=== PATIENT | female | born 1995 | race Caucasian/White ===

== ENCOUNTER 2016-12-18 12:51 | Inpatient (IN) | payer MEDICAID ==
--- NOTE | 2016-12-18 14:17 | History and Physical Report ---
History of Present Illness Date of examination: 12/18/16 Date of admission: 12/18/16 12:51 Chief complaint: Advanced Cervical Dilatation History of present illness: Early entry to care, course complicated by URI s/s. 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 Family/Genetic History: diabetes Social history: no significant social history, - Obstetrical History Expected Date of Delivery: 12/17/16 Actual Gestation: 40 Week(s) 1 Day(s) : 2 Para: 1 Number of Living Children: 1 #1 Infant Gender: Male year: 2[age][birth year] Birthweight: 2.977 kg Method of Delivery: Vaginal Gestational age at delivery: 38 Complications: none Medications and Allergies Allergies Allergy/AdvReac Type Severity Reaction Status Date / Time No Known Allergies Allergy Verified 01/09/15 00:38 Home Medications Medication Instructions Recorded Confirmed Last Taken Type Vitamin 1 cap PO DAILY 01/09/15 01/09/15 01/08/15 History Review of Systems All systems: negative - Vital Signs Vital signs: Vital Signs Pulse BP 86 106/67 12/18/16 13:08 12/18/16 13:08 Temp Pulse Resp BP Pulse Ox 97.7 F 80 16 106/67 95 12/18/16 13:27 12/18/16 14:01 12/18/16 13:27 12/18/16 13:27 12/18/16 14:01 - Physical Exam Breasts: Positive: normal Cardiovascular: Regular rate Lungs: Positive: Clear to auscultation, Normal air movement Abdomen: Positive: normal appearance, soft, normal bowel sounds Genitourinary (Female): Positive: normal external genitalia, normal perenium Vagina: Positive: normal moisture Uterus: Positive: enlarged Anus/Rectum: Positive: normal perianal skin - Obstetrical FHR: category 1 Uterine Contraction Monitor Mode: External Cervical Dilatation: 5 (Intact, Vtx) Cervical Effacement Percentage: 70 station: -2 Uterine Contraction Pattern: Regular Uterine Tone Measurement Phase: Resting Uterine Contraction Intensity: Moderate Results All other labs normal. Assessment and Plan A: IUP @ 40 1/7 Weeks Category I Tracing Early Labor GBS Negative P: Admit to L&D per routine orders Pitocin Augmentation
[2016-12-18] MEDS ORDERED: STADOL IV PRN (14:30)
[2016-12-18] MEDS ORDERED: ePHEDrine SULFATE IV PRN (14:30)
--- NOTE | 2016-12-18 14:41 | Progress Note ---
Assessment and Plan A: IUP @ 40 1/7 Weeks Category I Tracing Early Labor GBS Negative P: AROM Pitocin Augmentation Subjective - Subjective Date of service: 12/18/16 Interval history: Early entry to care, course complicated by URI s/s. Patient reports: movement normal Objective - Vital Signs Vital Signs: Vital Signs - 12hr 12/18/16 12/18/16 12/18/16 13:08 13:26 13:27 Temperature 97.7 F Pulse Rate 86 92 H 85 Respiratory 16 Rate Blood Pressure 106/67 106/67 O2 Sat by Pulse 97 96 Oximetry 12/18/16 12/18/16 12/18/16 13:31 13:36 13:41 Temperature Pulse Rate 82 81 82 Respiratory Rate Blood Pressure O2 Sat by Pulse 96 96 96 Oximetry 12/18/16 12/18/16 12/18/16 13:46 13:51 13:56 Temperature Pulse Rate 80 78 83 Respiratory Rate Blood Pressure O2 Sat by Pulse 95 96 96 Oximetry 12/18/16 14:01 Temperature Pulse Rate 80 Respiratory Rate Blood Pressure O2 Sat by Pulse 95 Oximetry - Exam Breasts: normal Cardiovascular: Regular rate Lungs: Clear to auscultation Abdomen: Present: normal appearance, soft Uterus: Present: normal, firm, fundal height above umbilicus FHR: category 1 Uterine Contraction Monitor Mode: External Cervical Dilatation: 5 (Moderate amount of clear fluid upon AROM @ 1435) Cervical Effacement Percentage: 70 station: -2 Uterine Contraction Pattern: Irregular Uterine Tone Measurement Phase: Resting Uterine Contraction Intensity: Mild Extremities: normal
[2016-12-18] MEDS ORDERED: BRETHINE IVP PRN (15:00)
[2016-12-18] MEDS ORDERED: ZOFRAN IV PRN ×2 (15:00→19:37)
[2016-12-18] MEDS ORDERED: XYLOCAINE 2% INFILTRATI ONE ×2 (15:00→19:03)
[2016-12-18] MEDS ORDERED: NARCAN 0.4 MG/1 ML IV PRN (15:00)
[2016-12-18] MEDS ORDERED: PITOCin/NS 30 UNIT/500ML 30 UNITS/500 ML BAG IV SCH ×2 (15:00)
[2016-12-18] MEDS ORDERED: PITOCin/NS 20 UNIT/1000ML DRIP 20 UNITS/1,000 ML BAG IV SCH (15:00)
[2016-12-18] MEDS ORDERED: BRETHINE SUB-Q PRN (15:00)
[2016-12-18] MEDS ORDERED: MINERAL OIL PO PRN (15:00)
[2016-12-18] MEDS ORDERED: LACTATED RINGERS 1,000 ML IV SCH (15:00)
[2016-12-18 15:36] LABS: Hematocrit 38.2 % (30.3-42.9); Hemoglobin 12.8 gm/dl (10.1-14.3); Mean Corpuscular HGB Conc 34 % (30-34); Mean Corpuscular Hemoglobin 29 pg (28-32); Mean Corpuscular Volume 86 fl (79-97); Platelet Count 335 K/mm3 (140-440); Red Blood Count 4.44 M/mm3 (3.65-5.03); Red Cell Distribution Width 14.2 % (13.2-15.2); White Blood Count 10.6 K/mm3 (4.5-11.0)
[2016-12-18] MEDS ORDERED: BENADRYL PO PRN (19:37)
[2016-12-18] MEDS ORDERED: MILK OF MAGNESIA PO PRN (19:37)
[2016-12-18] MEDS ORDERED: NORCO 5/325 PO PRN (19:37)
[2016-12-18] MEDS ORDERED: DULCOLAX PR PRN (19:37)
[2016-12-18] MEDS ORDERED: LANSINOH TP PRN (19:37)
[2016-12-18] MEDS ORDERED: PHENERGAN PR PRN (19:37)
[2016-12-18] MEDS ORDERED: TUCKS PAD TP PRN (19:37)
--- NOTE | 2016-12-18 19:47 | Procedure Note ---
OB Delivery Note - Delivery Date of Delivery: 12/18/16 (1900) Surgeon: NATASHA BARRAGAN Estimated blood loss: 200cc - Vaginal Delivery presentation: vertex Delivery position: OA Delivery induction: none Delivery augmentation: rupture of membranes, pitocin Delivery monitor: external FHT, external uterine Route of delivery: Delivery placenta: manual Delivery cord: nuchal cord, 3 umbilical vessels Episiotomy: none Delivery laceration: 1st degree Delivery repair: vicryl Anesthesia: local Delivery comments: of a live 7'11 male over a first degree perineal laceration without pain control with Apgars of 8 and 9 at 1900 on 12/18/2016. Tight nuchal cord x 1 manually reduced with delivery of infant. Infant directly to maternal abd/ chest, skin to skin contact. Delayed cord clamping and cutting. Manual placental extraction with one attempt at 1919. Placenta appears to be complete and intact. Upon uterine exploration, uterus palpates empty. Fundus is firm and midline located 4 below the U. Lochia is scant. First degree perineal laceration repaired with 2-[address]-1 under local 2% Lidocaine. Cord blood collected. - Infant A at 1 minute: 8 at 5 minutes: 9 Infant Gender: Male (7'11)
[2016-12-18] MEDS ORDERED: SODIUM CHLORIDE FLUSH SYRINGE 10 ML IV NR (20:00)
[2016-12-19] MEDS: MOTRIN PO SCH ×4 (02:15→23:25)
[2016-12-19 07:25] LABS: Hematocrit 35.1 % (30.3-42.9); Hemoglobin 11.5 gm/dl (10.1-14.3)
--- NOTE | 2016-12-19 10:34 | Progress Note ---
Assessment and Plan A: PP Day #1 Stable P: Follow Routine Orders Depo Provera prior to discharge D/C home in the AM RTO in 6 Weeks Subjective - Subjective Date of service: 12/19/16 Interval history: Early entry to care, course complicated by URI s/s. Patient reports: appetite normal, voiding normally, pain well controlled, flatus , ambulating normally [place]: doing well, bottle feeding Objective - Vital Signs Latest vital signs: Vital Signs Temp Pulse Resp BP Pulse Ox 12/19/16 08:20 98.3 F 73 17 102/62 12/19/16 04:40 98.6 F 67 67 H 106/53 12/19/16 02:15 16 12/19/16 01:10 98.6 F 65 16 103/54 12/18/16 21:30 98.3 F 83 20 99/60 12/18/16 21:00 97.6 F 87 18 102/70 12/18/16 20:34 87 102/70 12/18/16 20:23 81 101/62 12/18/16 20:10 86 114/58 12/18/16 19:53 83 88/53 12/18/16 19:45 97.4 F L 83 16 88/53 12/18/16 19:38 90 116/58 12/18/16 19:30 97.4 F L 90 18 116/58 12/18/16 19:23 106 H 127/58 12/18/16 19:08 103 H 113/56 12/18/16 16:29 97.0 F L 71 20 110/64 12/18/16 16:28 71 110/64 12/18/16 14:01 80 95 12/18/16 13:56 83 96 12/18/16 13:51 78 96 12/18/16 13:46 80 95 12/18/16 13:41 82 96 12/18/16 13:36 81 96 12/18/16 13:31 82 96 12/18/16 13:27 97.7 F 85 16 106/67 96 12/18/16 13:26 92 H 97 12/18/16 13:08 86 106/67 Intake and Output 12/18/16 12/19/16 12/19/16 22:59 06:59 14:59 Intake Total 600 120 Output Total 1400 Balance -800 120 Intake: Oral 120 Intake, Free Water 600 Output: Urine 1400 Void 1400 Other: Total, Intake Amount 120 Total, Output Amount 400 # Voids Void 1 Estimated Blood Loss 200 - Exam Breasts: Present: normal Cardiovascular: Present: Regular rate Lungs: Present: Clear to auscultation, Normal air movement Abdomen: Present: normal appearance, soft, normal bowel sounds Uterus: Present: normal, firm, fundal height below umbilicus Extremities: Present: normal
--- NOTE | 2016-12-19 10:36 | Discharge Summary ---
Providers - Providers Date of Admission: 12/18/16 12:51 Date of discharge: 12/20/16 Attending physician: DORA SOLIS MD Primary care physician: DORA SOLIS MD Hospitalization Reason for admission: active labor Delivery: Episiotomy: none Laceration: 1st degree Other procedures: none complications: none Discharge diagnosis: IUP at term delivered baby: male Condition at discharge: Good Disposition: DC-01 TO HOME OR SELFCARE Plan - Provider Discharge Summary Activity: routine, no sex for 6 weeks, no heavy lifting 4 weeks, no strenuous exercise Diet: routine Instructions: routine Additional instructions: [] Smoking cessation referral if applicable(refer to patient education folder for contact #) [] Refer to [facility]'s [facility] Booklet Call your doctor immediately for: * Fever > 100.5 * Heavy vaginal bleeding ( >1 pad per hour) * Severe persistent headache * Shortness of breath * Reddened, hot, painful area to leg or breast * Drainage or odor from incision. * Keep incision clean and dry at all times and follow doctor's instructions regarding bathing/showering - Follow up plan Follow up: JASON COLEMAN CNM [Advanced Practice Nurse] - 6 Weeks
[2016-12-19] MEDS ORDERED: DEPO-PROVERA (CONTRACEPTION) IM ONE ×2 (10:38→19:00)
[2016-12-19] MEDS: PRENATAL VITAMIN PO SCH (12:46)
[2016-12-19] MEDS: COLACE PO SCH ×2 (12:47→21:41)
[2016-12-20] MEDS: MOTRIN PO SCH (05:12)
[2016-12-20] MEDS ORDERED: BOOSTRIX IM ONE (06:00)
[2016-12-20] MEDS: PRENATAL VITAMIN PO SCH (10:03)
[2016-12-20] MEDS: COLACE PO SCH (10:04)
[2016-12-20] MEDS ORDERED: M-M-R II VACCINE SUB-Q ONE (11:00)
[2016-12-20 19:04] VITALS: BP 102/66
== END 2016-12-20 21:00 | disposition home or self-care (01) | DRG 775 ==
LOC: LD 12:51 → OB 22:02
PROVIDERS: ADMIT Obstetrics & Gynecology; ATTEND Obstetrics & Gynecology
PROC: 10E0XZZ Delivery of Products of Conception, External Approach (ICD-10-PCS; principal; 2016-12-18)
PROC: 0HQ9XZZ Repair Perineum Skin, External Approach (ICD-10-PCS; 2016-12-18)
PROC: 3E0234Z Introduction of Serum, Toxoid and Vaccine into Muscle, Percutaneous Approach (ICD-10-PCS; 2016-12-19)
DX: O69.1XX0 Labor and delivery complicated by cord around neck, with compression, not applicable or unspecified (principal); O70.0 First degree perineal laceration during delivery; Z3A.40 40 weeks gestation of pregnancy; Z37.0 Single live birth; Z23 Encounter for immunization
CPT/HCPCS: 36415; 85014; 85018; 85027; 86850; 86900; 86901; 90471; 90472; 90715; 99211; G0463; J0595; J2405; J2590; J7120

== ENCOUNTER 2018-10-21 17:50 | Emergency (ER) | payer OTHER, MEDICAID ==
--- NOTE | 2018-10-21 18:07 | Emergency Department Report ---
Blank Doc - Documentation Documentation: This is a 23-year-old female that is about 18 weeks that presents with n/v. Denies any abdominal pain, pelvic pain, or vaginal bleeding. Denies any other symptoms or complaints. This initial assessment/diagnostic orders/clinical plan/treatment(s) is/are subject to change based on patient's health status, clinical progression and re- assessment by fellow clinical providers in the ED. Further treatment and workup at subsequent clinical providers discretion. Patient/guardians urged not to elope from the ED as their condition may be serious if not clinically assessed and managed. Initial orders include: 1- Patient sent to [facility] for further evaluation and treatment 2- labs
[2018-10-21 19:13] LABS: Hemoglobin 11.5 gm/dl (10.1-14.3); Mean Corpuscular HGB Conc 34 % (30-34); Mean Corpuscular Volume 80 fl (79-97); Platelet Count 312 K/mm3 (140-440); Red Blood Count 4.25 M/mm3 (3.65-5.03)
[2018-10-21 19:20] LABS: Red Cell Distribution Width 22.3 % (13.2-15.2)
[2018-10-21 19:34] LABS: BUN/Creatinine Ratio 13; Blood Urea Nitrogen 4 mg/dL (7-17); Calcium 8.4 mg/dL (8.4-10.2); Hemolysis Index 30
[2018-10-21 19:50] LABS: Basophils % (Manual) 0 % (0.0-1.8); Eosinophils % (Manual) 0 % (0.0-4.3); Total Cells Counted 100
[2018-10-21 19:51] LABS: Anisocytosis 1+; Platelet Estimate Consistent w Auto; Target Cells Few
[2018-10-21] MEDS ORDERED: NACL 0.9% 1000 ML 1,000 ML IV ONE (23:41)
[2018-10-21] MEDS ORDERED: ZOFRAN IV ONE (23:41)
[2018-10-22] MEDS ORDERED: ZOFRAN ODT PO ONE (01:26)
--- NOTE | 2018-10-22 01:26 | Emergency Department Report ---
ED General Adult HPI - General Chief complaint: Nausea/Vomiting/Diarrhea Stated complaint: VOMITING/18WKS Time Seen by Provider: 10/21/18 18:06 Source: patient, RN notes reviewed, old records reviewed Mode of arrival: Ambulatory Limitations: No Limitations - History of Present Illness Initial comments: This is a 23-year-old female. The patient is not known to this provider previously. She is 3, para 2, approximately 19 weeks . 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 This is a pleasant 23-year-old female. The patient presents to the emergency room today with complaint of painless nausea and vomiting. It started in the past 24 hours. Describes 4-5 episodes of clear nonbloody, nonbilious emesis. This has not happened in prior pregnancies. She reports no unintentional weight gain or weight loss. She denies headache, neck pain, chest pain, abdominal pain, shortness of breath. She denies urinary symptoms. She denies muscular skeletal pain, rash, fever, easy bleeding and/or bruising. She reports that her nausea typically worsens when she attempts to eat or drink. She reports taking mae for nausea. -: Gradual Consistency: intermittent Improves with: rest Worsens with: eating Associated Symptoms: denies other symptoms - Related Data Home Medications Medication Instructions Recorded Confirmed Last Taken Vitamin 1 cap PO DAILY 01/09/15 12/19/16 01/08/15 Previous Rx's Medication Instructions Recorded Last Taken Type Doxylamine Succinate/Vit B6 1 each PO QHS PRN #30 tablet. 10/22/18 Unknown Rx [Manny Rand 10-10 mg Tablet] Ondansetron [Zofran Odt] 4 mg PO Q8HR PRN #15 tab.rapdis 10/22/18 Unknown Rx Allergies Allergy/AdvReac Type Severity Reaction Status Date / Time No Known Allergies Allergy Verified 01/09/15 00:38 ED Review of Systems ROS: Stated complaint: VOMITING/18WKS Other details as noted in HPI Constitutional: denies: fever Eyes: denies: eye discharge Respiratory: denies: cough Cardiovascular: denies: chest pain Gastrointestinal: denies: abdominal pain Genitourinary: denies: urgency, dysuria Musculoskeletal: denies: back pain Skin: denies: lesions Neurological: denies: weakness Psychiatric: denies: anxiety Hematological/Lymphatic: denies: easy bleeding ED Past Medical Hx - Past Medical History Previous Medical History?: No Hx Hypertension: No Hx Congestive Heart Failure: No Hx Diabetes: No Hx Deep Vein Thrombosis: No Hx Renal Disease: No Hx Sickle Cell Disease: No Hx Seizures: No Hx Asthma: No Hx COPD: No Hx HIV: No - Surgical History Past Surgical History?: Yes Hx Appendectomy: Yes - Social History Smoking Status: Never Smoker Substance Use Type: None - Medications Home Medications: Home Medications Medication Instructions Recorded Confirmed Last Taken Type Vitamin 1 cap PO DAILY 01/09/15 12/19/16 01/08/15 History Doxylamine Succinate/Vit B6 1 each PO QHS PRN #30 tablet. 10/22/18 Unknown Rx [Dicchaparros Dr 10-10 mg Tablet] Ondansetron [Zofran Odt] 4 mg PO Q8HR PRN #15 tab.edson 10/22/18 Unknown Rx ED Physical Exam - General Limitations: No Limitations General appearance: alert, in no apparent distress - Head Head exam: Present: atraumatic, normocephalic - Eye Eye exam: Present: normal appearance, EOMI. Absent: nystagmus - ENT ENT exam: Present: normal exam, normal orophraynx, mucous membranes moist, normal external ear exam - Neck Neck exam: Present: normal inspection, full ROM. Absent: tenderness, meningismus - Respiratory Respiratory exam: Present: normal lung sounds bilaterally. Absent: respiratory distress, wheezes, rales, rhonchi, stridor, chest wall tenderness - Cardiovascular Cardiovascular Exam: Present: regular rate, normal rhythm, normal heart sounds. Absent: bradycardia, tachycardia, irregular rhythm, systolic murmur, diastolic murmur, rubs, gallop - GI/Abdominal GI/Abdominal exam: Present: soft, other (uterus consistent with dates, no tenderness). Absent: distended, tenderness, guarding, rebound, rigid, pulsatile mass - Extremities Exam Extremities exam: Present: normal inspection, full ROM, other (2+ pulses noted in the bilateral upper, lower extremities. Compartments soft. No long bony tenderness. The pelvis is stable.). Absent: pedal edema, joint swelling, calf tenderness - Back Exam Back exam: Present: normal inspection, full ROM. Absent: tenderness, CVA tenderness (R), CVA tenderness (L), paraspinal tenderness, vertebral tenderness - Neurological Exam Neurological exam: Present: alert, oriented X3, normal gait, other (Extraocular movements intact. Tongue midline. No facial droop. Facial sensation intact to light touch in the V1, V2, V3 distribution bilaterally. 5 and 5 strength in 4 e xtremities.. Sensation is intact to light touch in 4 extremities.). Absent: motor sensory deficit - Psychiatric Psychiatric exam: Present: normal affect, normal mood - Skin Skin exam: Present: warm, dry, intact, normal color. Absent: rash ED Course Vital Signs 10/21/18 10/22/18 18:07 02:30 Temperature 98.5 F 98.4 F Pulse Rate 78 75 Respiratory 16 16 Rate Blood Pressure 99/60 Blood Pressure 96/55 [Right] O2 Sat by Pulse 99 98 Oximetry ED Medical Decision Making - Lab Data Result diagrams: 10/21/18 18:43 10/21/18 18:43 Vital Signs 10/21/18 18:07 Temperature 98.5 F Pulse Rate 78 Respiratory 16 Rate Blood Pressure 99/60 O2 Sat by Pulse 99 Oximetry Labs 10/21/18 10/21/18 10/21/18 18:43 18:43 18:43 WBC 7.2 RBC 4.25 Hgb 11.5 Hct 34.0 MCV 80 MCH 27 L MCHC 34 RDW 22.3 H Plt Count 312 Add Manual Diff Complete Total Counted 100 Seg Neuts % (Manual) 74.0 H Band Neutrophils % 0 Lymphocytes % (Manual) 20.0 Reactive Lymphs % (Man) 0 Monocytes % (Manual) 6.0 Eosinophils % (Manual) 0 Basophils % (Manual) 0 Metamyelocytes % 0 Myelocytes % 0 Promyelocytes % 0 Blast Cells % 0 Nucleated RBC % Not Reportable Seg Neutrophils # Man 5.3 Band Neutrophils # 0.0 Lymphocytes # (Manual) 1.4 Abs React Lymphs (Man) 0.0 Monocytes # (Manual) 0.4 Eosinophils # (Manual) 0.0 Basophils # (Manual) 0.0 Metamyelocytes # 0.0 Myelocytes # 0.0 Promyelocytes # 0.0 Blast Cells # 0.0 WBC Morphology Not Reportable Hypersegmented Neuts Not Reportable Hyposegmented Neuts Not Reportable Hypogranular Neuts Not Reportable Smudge Cells Not Reportable Toxic Granulation Not Reportable Toxic Vacuolation Not Reportable Dohle Bodies Not Reportable Pelger-Huet Anomaly Not Reportable Agustin Rods Not Reportable Platelet Estimate Consistent w auto Clumped Platelets Not Reportable Plt Clumps, EDTA Not Reportable Large Platelets Not Reportable Giant Platelets Not Reportable Platelet Satelliting Not Reportable Plt Morphology Comment Not Reportable RBC Morphology Not Reportable Dimorphic RBCs Not Reportable Polychromasia Not Reportable Hypochromasia Not Reportable Poikilocytosis Not Reportable Anisocytosis 1+ Microcytosis Not Reportable Macrocytosis Not Reportable Spherocytes Not Reportable Pappenheimer Bodies Not Reportable Sickle Cells Not Reportable Target Cells Few Tear Drop Cells Not Reportable Ovalocytes Not Reportable Helmet Cells Not Reportable [place] Bodies Not Reportable [place] Rings Not Reportable Fe Cells Not Reportable Bite Cells Not Reportable Crenated Cell Not Reportable Elliptocytes Few Acanthocytes (Spur) Not Reportable Rouleaux Not Reportable Hemoglobin C Crystals Not Reportable Schistocytes Not Reportable Malaria parasites Not Reportable Michael Bodies Not Reportable Hem Pathologist Commnt No Sodium 136 L Potassium 3.5 L Chloride 102.4 Carbon Dioxide 21 L Anion Gap 16 BUN 4 L Creatinine 0.3 L Estimated GFR > 60 BUN/Creatinine Ratio 13 Glucose 87 Calcium 8.4 Magnesium Total Bilirubin Direct Bilirubin Indirect Bilirubin AST ALT Alkaline Phosphatase Total Protein Albumin Albumin/Globulin Ratio HCG, Quant 91482 H Urine Bilirubin Urine RBC (Auto) U Epithel Cells (Auto) 10/22/18 10/22/18 10/22/18 00:00 00:00 01:40 WBC RBC Hgb Hct MCV MCH MCHC RDW Plt Count Add Manual Diff Total Counted Seg Neuts % (Manual) Band Neutrophils % Lymphocytes % (Manual) Reactive Lymphs % (Man) Monocytes % (Manual) Eosinophils % (Manual) Basophils % (Manual) Metamyelocytes % Myelocytes % Promyelocytes % Blast Cells % Nucleated RBC % Seg Neutrophils # Man Band Neutrophils # Lymphocytes # (Manual) Abs React Lymphs (Man) Monocytes # (Manual) Eosinophils # (Manual) Basophils # (Manual) Metamyelocytes # Myelocytes # Promyelocytes # Blast Cells # WBC Morphology Hypersegmented Neuts Hyposegmented Neuts Hypogranular Neuts Smudge Cells Toxic Granulation Toxic Vacuolation Dohle Bodies Pelger-Huet Anomaly Agustin Rods Platelet Estimate Clumped Platelets Plt Clumps, EDTA Large Platelets Giant Platelets Platelet Satelliting Plt Morphology Comment RBC Morphology Dimorphic RBCs Polychromasia Hypochromasia Poikilocytosis Anisocytosis Microcytosis Macrocytosis Spherocytes Pappenheimer Bodies Sickle Cells Target Cells Tear Drop Cells Ovalocytes Helmet Cells [place] Bodies [place] Rings [place] Cells Bite Cells Crenated Cell Elliptocytes Acanthocytes (Spur) Rouleaux Hemoglobin C Crystals Schistocytes Malaria parasites Michael Bodies Hem Pathologist Commnt Sodium Potassium Chloride Carbon Dioxide Anion Gap BUN Creatinine Estimated GFR BUN/Creatinine Ratio Glucose Calcium Magnesium 1.70 Total Bilirubin 0.20 Direct Bilirubin < 0.2 Indirect Bilirubin 0.0 AST 34 ALT 22 Alkaline Phosphatase 42 Total Protein 6.0 L Albumin 3.6 L Albumin/Globulin Ratio 1.5 HCG, Quant Urine Bilirubin Neg Urine RBC (Auto) < 1.0 U Epithel Cells (Auto) 1.0 - Radiology Data Radiology results: report reviewed, image reviewed Print Report Referring Physician: LIDYA SAUCEDO Patient Name: ROJELIO RANDLE Date of : 1995 Sex: Female Report Date: 2018-10-21 Report Status: Finalized Findings [facility], [place] [address] [place] [address] Ultrasound Report Signed Patient: ROJELIO RANDLE MR#: [id number] : 1995 Acct:[id number] Age/Sex: 23 / F ADM Date: 10/21/18 Loc: ED Attending Dr: Ordering Physician: Lidya Lyle MD Date of Service: 10/21/18 Procedure(s): US OB >= 14 weeks Fetus Accession Number(s): [id number] cc: Lidya Lyle MD PROCEDURE: US OB >= 14 WEEKS FETUS TECHNIQUE: Real-time transabdominal sonography of the uterus, placenta, amniotic fluid, adnexa, and fetus was performed with image documentation. Measurements were obtained to determine age/size. M-mode Doppler was used to document heartbeat. ADDITIONAL GESTATION: None HISTORY: preg COMPARISONS: None. FINDINGS: MATERNAL: Uterus and cervix: The cervix is closed measures 4 cm in length. Adnexa and ovaries: Not visualized. IUP: Single live intrauterine gestation. Position: Cephalic Placental position: Posterior, without previa . Amniotic fluid volume Normal. AMINATA is 5.0 cm. Cardiac activity: Regular rhythm at 104 bpm. ANATOMY: Face/lips/nose: Normal. Cerebral ventricles: Normal. Cisterna magna/cerebellum: Normal. Heart: Normal. Stomach: Normal. Umbilical cord: 3 vessel umbilical cord with normal insertion. Kidneys: Normal. Bladder: Normal. Spine: Normal. Extremities: Normal. BIOMETRY: Biparietal diameter: 4.5 cm corresponding to 19 weeks and 5 days. Head circumference: 16.2 cm corresponding to 19 weeks. abdominal circumference: 14.8 cm corresponding to 20 weeks. Femur length: 2.6 cm corresponding to 18 weeks. Ratio biometry: Normal . Estimated Weight: 275 grams +/- 41 grams. ounces +/- .ounces. . percentile. Mean Gestational Age (composite criteria) based on today's measurements: 19 weeks and 1 day. Estimated Due Date (earliest scan): 03/16/2019. IMPRESSION: Single live intrauterine gestation at 19 weeks and 1 day. Estimated due date: 03/16/2019. No anatomic abnormality. This document is electronically signed by Joe Khoury MD., October 22 2018 01:35:28 AM ET Transcribed By: CO Dictated By: JOE KHOURY MD Electronically Authenticated By: JOE KHOURY MD Signed Date/Time: 10/22/18 0137 - Medical Decision Making Differential diagnosis, including the not limited to: Nausea and vomiting of , asymptomatic bacteriuria Assessment and plan: 23-year-old female who does not appear to be in any acute distress, with unremarkable vital signs, unremarkable physical exam, a Kleenex. She mild nausea, vomiting of . Symptoms improved with oral Zofran ODT. Currently eating a sandwich. Screening laboratory studies unremarkable. Obstetrics ultrasound unremarkable. Vital signs have remained stable and unremarkable. We will start the patient on diclegis, continue mae, and have her follow-up with her outpatient FIRE PROTECTION SPECIALIST physician. Clinically sober at this time, and endorses no cannabis consumption, and endorses no exposure to cannabis or other inhaled substances. Critical care attestation.: If time is entered above; I have spent that time in minutes in the direct care of this critically ill patient, excluding procedure time. ED Disposition Clinical Impression: Nausea and vomiting during Disposition: DC-01 TO HOME OR SELFCARE Is pt being admited?: No Does the pt Need Aspirin: No Condition: Stable Instructions: Hyperemesis Gravidarum (ED) Additional Instructions: Continue outpatient medications. Avoid consumption of Motrin, ibuprofen, Naprosyn, Aleve, heavy, spicy, rich, fatty foods. Avoid consumption of alcohol. Advance diet as tolerated. Drink plenty of fluids, Pedialyte and water are i deal oral hydration fluids. Taken nausea medications as needed/directed. Follow-up with her FIRE PROTECTION SPECIALIST doctor within the next 7-10 days. Return to the emergency room right away with new, worse or different symptoms, projectile vomiting, change in mental status, confusion, inability to tolerate liquid feeds, change in mental status, or new symptoms not present on the initial emergency room evaluation. Prescriptions: Doxylamine Succinate/Vit B6 [Manny Rand 10-10 mg Tablet] 1 each PO QHS PRN #30 tablet.dr PRN Reason: Nausea Ondansetron [Zofran Odt] 4 mg PO Q8HR PRN #15 tab.rapdis PRN Reason: Nausea Referrals: KO PEREZ MD [Staff Physician] - 3-5 Days [facility] [Provider Group] - 3-5 Days
--- NOTE | 2018-10-22 01:37 | Ultrasound Report ---
PROCEDURE: US OB >= 14 WEEKS FETUS TECHNIQUE: Real-time transabdominal sonography of the uterus, placenta, amniotic fluid, adnexa, and fetus was performed with image documentation. Measurements were obtained to determine age/size. M-mode Doppler was used to document heartbeat. ADDITIONAL GESTATION: None HISTORY: preg COMPARISONS: None. FINDINGS: MATERNAL: Uterus and cervix: The cervix is closed measures 4 cm in length. Adnexa and ovaries: Not visualized. IUP: Single live intrauterine gestation. Position: Cephalic Placental position: Posterior, without previa . Amniotic fluid volume Normal. AMINATA is 5.0 cm. Cardiac activity: Regular rhythm at 104 bpm. ANATOMY: Face/lips/nose: Normal. Cerebral ventricles: Normal. Cisterna magna/cerebellum: Normal. Heart: Normal. Stomach: Normal. Umbilical cord: 3 vessel umbilical cord with normal insertion. Kidneys: Normal. Bladder: Normal. Spine: Normal. Extremities: Normal. BIOMETRY: Biparietal diameter: 4.5 cm corresponding to 19 weeks and 5 days. Head circumference: 16.2 cm corresponding to 19 weeks. abdominal circumference: 14.8 cm corresponding to 20 weeks. Femur length: 2.6 cm corresponding to 18 weeks. Ratio biometry: Normal . Estimated Weight: 275 grams +/- 41 grams. ounces +/- .ounces. . percentile. Mean Gestational Age (composite criteria) based on today's measurements: 19 weeks and 1 day. Estimated Due Date (earliest scan): 03/16/2019. IMPRESSION: Single live intrauterine gestation at 19 weeks and 1 day. Estimated due date: 03/16/2019. No anatomic abnormality. This document is electronically signed by Joe Boogie MD., October 22 2018 01:35:28 AM ET
[2018-10-22 01:48] LABS: Alanine Aminotransferase 22 units/L (7-56); Albumin 3.6 g/dL (3.9-5)
[2018-10-22 01:49] LABS: Bilirubin,Direct < 0.2 mg/dL (0-0.2)
[2018-10-22 02:13] LABS: Bilirubin,Urine NEG (Negative); Blood,Urine NEG (Negative); Color,Urine Yellow (Yellow); Mucus,Urine 3+ /HPF; Protein,Urine <15 mg/dL mg/dL (Negative); RBC,Urine < 1.0 /HPF (0.0-6.0); Urobilinogen,Urine < 2.0 mg/dL (<2.0)
[2018-10-22 02:34] VITALS: BP 96/55
== END 2018-10-22 03:10 | disposition home or self-care (01) ==
LOC: ED 17:50
DX: O21.8 Other vomiting complicating pregnancy (principal); Z3A.19 19 weeks gestation of pregnancy; Z90.49 Acquired absence of other specified parts of digestive tract; Z79.899 Other long term (current) drug therapy
CPT/HCPCS: 36415; 76805; 80048; 80076; 81001; 83735; 84702; 85007; 85025; 99284; Q0162

== ENCOUNTER 2019-03-14 09:42 | Inpatient (IN) | payer MEDICAID ==
[2019-03-14] MEDS ORDERED: LIDOCAINE (2%) 20 MG/1 ML VIAL 20 ML MDV INFILTRATI ONE (11:18)
[2019-03-14] MEDS ORDERED: ePHEDrine SULFATE 50 MG/1 ML INJ IV PRN (11:18)
[2019-03-14] MEDS ORDERED: TERBUTALINE 1 MG/1 ML INJ SUB-Q PRN (11:18)
[2019-03-14] MEDS ORDERED: fentaNYL 100 MCG/2 ML INJ IV PRN (11:18)
--- NOTE | 2019-03-14 11:27 | History and Physical Report ---
History of Present Illness Date of examination: 03/14/19 Date of admission: 03/14/19 Chief complaint: Contractions History of present illness: 23 year old presents with complaint of pink vaginal spotting when she wiped this morning and contractions since yesterday. Patient denies leaking of fluid. Patient received care at [facility] and records are available. LMP 06/14/18. EDC 03/21/19 (based on LMP and confirmed by 8 week US). 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 labs are as follows: O+, antibody screen negative, rubella immune, hepatitis B surface antigen negative, HIV negative, RPR nonreactive, varicella immune, hemoglobin electrophoresis AA, gonorrhea negative, chlamydia negative, trichomonas negative, AFP negative, panorama low risk, intermediate allele for fragile X, 1 hour sugar test 94, GBS negative. Past History Past Medical History: other (anemia in the past) Past Surgical History: appendectomy [facility] History: herpes (history of positive HSV 2 serology; no history of outbreaks) Family/Genetic History: diabetes, other (intermediate allele for fragile X on horizon carrier screen) Social history: , lives with family, full code. denies: smoking, alcohol abuse, prescription drug abuse, IV drug use - Obstetrical History Expected Date of Delivery: 03/21/19 Actual Gestation: 39 Week(s) 0 Day(s) : 3 Para: 2 Hx # Term Pregnancies: 2 Number of Pregnancies: 0 Spontaneous Abortions: 0 Induced : 0 Number of Living Children: 2 Medications and Allergies Allergies Allergy/AdvReac Type Severity Reaction Status Date / Time No Known Allergies Allergy Verified 01/09/15 00:38 Home Medications Medication Instructions Recorded Confirmed Last Taken Type Vitamin 1 cap PO DAILY 01/09/15 12/19/16 01/08/15 History Doxylamine Succinate/Vit B6 1 each PO QHS PRN #30 tablet. 10/22/18 Unknown Rx [Manny Rand 10-10 mg Tablet] Ondansetron [Zofran Odt] 4 mg PO Q8HR PRN #15 tab.selenadis 10/22/18 Unknown Rx Review of Systems All systems: negative (contractions, pink vaginal spotting when wiping) - Vital Signs Vital signs: Vital Signs Pulse BP 109 H 118/75 03/14/19 09:59 03/14/19 09:59 Temp Pulse Resp BP Pulse Ox 97.6 F 72 16 118/75 03/14/19 10:01 03/14/19 10:01 03/14/19 10:01 03/14/19 10:01 - Physical Exam Abdomen: Positive: normal appearance, soft. Negative: distention, tenderness, guarding, rigidity Genitourinary (Female): Positive: normal external genitalia, normal perenium. Negative: perineal/vulvar lesions (no lesions seen on careful exam with bright light upon admission) Vagina: Positive: normal moisture Uterus: Positive: enlarged Anus/Rectum: Positive: normal perianal skin Extremities: Positive: normal - Obstetrical FHR: category 1 Uterine Contraction Monitor Mode: Palpation Cervical Dilatation: 6 Cervical Effacement Percentage: 90 station: -1 Uterine Contraction Pattern: Regular Uterine Contraction Intensity: Moderate Results All other labs normal. Assessment and Plan A: at 39 weeks gestation. Active labor. GBS negative. HSV 2 positive serology with no lesions and no prodromal symptoms (and on Valtrex suppression). P: Admit. Continuous EFM. Continue Valtrex suppression of HSV. Anticipate vaginal .
[2019-03-14] MEDS ORDERED: OXYTOCIN 20 UNIT/1000ML DRIP 20 UNITS/1,000 ML BAG IV SCH (12:00)
[2019-03-14] MEDS ORDERED: LACTATED RINGERS 1,000 ML IV SCH ×2 (12:00)
[2019-03-14] MEDS ORDERED: valACYclovir 500 MG TAB PO SCH (12:00)
[2019-03-14 14:24] LABS: Basophils % (Auto) 0.3 % (0.0-1.8); Eosinophils % (Auto) 0.2 % (0.0-4.3); Hematocrit 40.3 % (30.3-42.9); Hemoglobin 13.7 gm/dl (10.1-14.3); Lymphocytes # (Auto) 0.7 K/mm3 (1.2-5.4); Lymphocytes % (Auto) 9.4 % (13.4-35.0); Mean Corpuscular HGB Conc 34 % (30-34); Mean Corpuscular Volume 91 fl (79-97); Monocytes # (Auto) 0.5 K/mm3 (0.0-0.8); Monocytes % (Auto) 6.7 % (0.0-7.3); Platelet Count 320 K/mm3 (140-440); Red Blood Count 4.42 M/mm3 (3.65-5.03); Red Cell Distribution Width 13.7 % (13.2-15.2)
[2019-03-14 14:28] LABS: Bacteria,Urine 4+ /HPF (Negative); Bilirubin,Urine NEG (Negative); Blood,Urine MOD (Negative); Color,Urine Amber (Yellow); Mucus,Urine 3+ /HPF; Urobilinogen,Urine < 2.0 mg/dL (<2.0)
[2019-03-14] MEDS ORDERED: cefTRIAXone/NS 1 GM/50 ML 1 GM/50 ML BAG IV SCH (16:00)
[2019-03-14] MEDS ORDERED: WITCH HAZEL/ GLYCERIN PAD TP PRN (17:29)
[2019-03-14] MEDS ORDERED: LANOLIN/ZINC/DIMETHICONE (LANSINOH) 7 GM TP PRN (17:29)
[2019-03-14] MEDS ORDERED: MAGNESIUM HYDROXIDE (MOM) ORAL LIQD UDC PO PRN (17:29)
[2019-03-14] MEDS ORDERED: HYDROcodone/ACETAMINOPHEN 5-325 MG TAB PO PRN (17:29)
--- NOTE | 2019-03-14 17:38 | Procedure Note ---
OB Delivery Note - Delivery Date of Delivery: 03/14/19 Surgeon: CHRISTIANNE TOLLIVER Estimated blood loss: other (250 cc) - Vaginal Delivery presentation: vertex Delivery position: OA Intrapartum events: none Delivery induction: none Delivery monitor: external FHT, external uterine Route of delivery: Delivery placenta: spontaneous Delivery cord: 3 umbilical vessels, other (short cord) Delivery laceration: 1st degree Delivery repair: vicryl Anesthesia: none Delivery comments: Spontaneous vaginal delivery at 16:52 of liveborn male infant weighing 7 lb. 4 oz. over first degree perineal laceration with apgars of 9/9. Compound presentation; hand presented alongside face. Baby placed immediately skin to skin with mom after delivery. Spontaneous cry and respirations. Baby dried with warm towels and suctioned with bulb syringe. Short cord. 3 vessel cord double clamped and cut after cessation of pulsation. Cord blood obtained. Spontaneous delivery of intact placenta and membranes by rolle mechanism. EBL 250 cc. Pitocin to IV fluids after delivery of placenta. Fundus firm and midline. Vaginal sweep negative. Small 1st degree perineal laceration repaired with one stitch of 3-0 vicryl. No other lacerations seen. Sponge count correct. Mother and baby stable.
[2019-03-14] MEDS ORDERED: OXYTOCIN 20 UNIT/1000ML DRIP 20,000 MILLIUNITS/1,000 ML BAG IV ONE (19:12)
[2019-03-14] MEDS: DOCUSATE SODIUM 100 MG CAP PO SCH (22:00)
[2019-03-14] MEDS: IBUPROFEN 600 MG TAB PO SCH (23:46)
[2019-03-15 05:29] LABS: Hematocrit 36.1 % (30.3-42.9); Hemoglobin 12.6 gm/dl (10.1-14.3)
[2019-03-15] MEDS ORDERED: TETANUS,DIPH,PERTUSS(ACELL) VACCINE 0.5 ML SYRINGE IM ONE (06:00)
[2019-03-15] MEDS: IBUPROFEN 600 MG TAB PO SCH ×3 (06:00→17:33)
[2019-03-15] MEDS: DOCUSATE SODIUM 100 MG CAP PO SCH ×2 (09:39→21:59)
--- NOTE | 2019-03-15 10:26 | Progress Note ---
Assessment and Plan - Patient Problems (1) Status post normal vaginal delivery Current Visit: Yes Status: Acute Plan to address problem: PPD 1 - stable Continue routine orders Discharge to home 03/16/19 Follow up at [facility] as needed or in 6 weeks for exam Subjective - Subjective Date of service: 03/15/19 Principal diagnosis: PPD #1; s/p Interval history: see H&P and OB Delivery Procedure Note Patient reports: appetite normal, voiding normally, pain well controlled, a mbulating normally, no dizzy ambulation [place]: doing well, bottle feeding Objective - Vital Signs Latest vital signs: Vital Signs Temp Pulse Resp BP BP Pulse Ox 03/15/19 08:50 97.9 F 78 18 105/66 03/15/19 07:00 18 03/15/19 06:00 18 03/15/19 02:05 98.4 F 78 18 95/54 97 03/15/19 00:46 18 03/14/19 23:46 18 03/14/19 20:59 98.6 F 96 H 18 102/58 96 03/14/19 18:30 98.3 F 93 H 107/59 03/14/19 18:28 98 H 97 03/14/19 18:27 98.6 F 92 H 16 105/65 98 03/14/19 18:07 93 H 107/59 03/14/19 17:48 93 H 124/57 03/14/19 17:33 93 H 122/60 03/14/19 17:31 98.2 F 03/14/19 17:18 100 H 135/68 03/14/19 17:03 92 H 128/73 03/14/19 17:01 103 H 123/84 03/14/19 16:48 105 H 124/87 03/14/19 16:33 93 H 122/72 03/14/19 16:29 98 H 94 03/14/19 16:27 90 98 03/14/19 16:24 112 H 92 03/14/19 16:22 99 H 97 03/14/19 16:18 96 H 122/75 03/14/19 16:17 98 H 98 03/14/19 16:12 104 H 97 03/14/19 16:07 105 H 97 03/14/19 16:03 102 H 117/85 03/14/19 16:02 108 H 97 03/14/19 15:57 104 H 97 03/14/19 15:52 104 H 96 03/14/19 15:50 85 18 111/77 96 03/14/19 15:48 99 H 111/77 03/14/19 15:47 85 96 03/14/19 15:42 86 96 03/14/19 15:37 120 H 98 03/14/19 15:33 91 H 109/65 03/14/19 15:32 91 H 96 03/14/19 15:27 90 96 03/14/19 15:22 95 H 97 03/14/19 15:19 85 107/62 03/14/19 15:17 85 96 03/14/19 15:12 106 H 97 03/14/19 15:07 94 H 95 03/14/19 15:03 86 106/65 03/14/19 15:02 89 96 03/14/19 14:57 98 H 96 03/14/19 14:52 96 H 95 03/14/19 14:49 85 107/64 03/14/19 14:47 98 H 96 03/14/19 14:42 89 97 03/14/19 14:37 82 95 03/14/19 14:33 85 92/54 03/14/19 14:32 85 96 03/14/19 14:27 89 95 03/14/19 14:22 91 H 96 03/14/19 14:18 88 92/55 03/14/19 14:17 88 95 03/14/19 12:55 98.4 F 86 18 105/62 97 03/14/19 12:50 82 96 03/14/19 12:45 88 96 Intake and Output 03/14/19 03/15/19 03/15/19 23:59 07:59 15:59 Intake Total 120 480 120 Output Total 400 400 Balance -280 80 120 Intake: Oral 120 Intake, Free Water 120 480 Output: Urine 400 400 Void 400 400 Other: Total, Intake Amount 120 Total, Output Amount 400 400 # Voids Void 1 1 Estimated Blood Loss 250 - Exam Cardiovascular: Present: Regular rate Lungs: Present: Clear to auscultation Abdomen: Present: normal appearance, soft Vulva: both: laceration/episiotomy (healing well) Uterus: Present: normal, firm, fundal height below umbilicus Extremities: Present: normal Comments: small lochia - Labs Labs: Abnormal lab results 03/14/19 03/14/19 Range/Units 11:37 13:25 Lymph % (Auto) 9.4 L (13.4-35.0) % Lymph # 0.7 L (1.2-5.4) K/mm3 Seg Neutrophils % 83.4 H (40.0-70.0) % Urine WBC (Auto) 58.0 H (0.0-6.0) /HPF U Epithel Cells (Auto) 31.0 H (0-13.0) /HPF
--- NOTE | 2019-03-15 10:29 | Discharge Summary ---
Providers - Providers Date of Admission: 03/14/19 12:31 Date of discharge: 03/16/19 Attending physician: KO PEREZ MD Primary care physician: KO PEREZ MD Hospitalization Reason for admission: active labor, IUP at term Delivery: Episiotomy: none Laceration: none Other procedures: none complications: none Discharge diagnosis: IUP at term delivered [place] baby: male Hospital course: Uncomplicated Condition at discharge: Stable Disposition: [id number] TO HOME OR SELFCARE - Discharge Diagnoses (1) Status post normal vaginal delivery Status: Acute Plan - Provider Discharge Summary Activity: routine, no sex for 6 weeks, no heavy lifting 4 weeks, no strenuous exercise Diet: routine Instructions: routine Additional instructions: [] Smoking cessation referral if applicable(refer to patient education folder for contact #) [] Refer to [facility] Booklet Call your doctor immediately for: * Fever > 100.5 * Heavy vaginal bleeding ( >1 pad per hour) * Severe persistent headache * Shortness of breath * Reddened, hot, painful area to leg or breast * Drainage or odor from incision. * Keep incision clean and dry at all times and follow doctor's instructions regarding bathing/showering - Follow up plan Follow up: KO PEREZ MD [Primary Care Provider] - 6 Weeks (Follow up at [facility] as needed or in 6 weeks for exam)
[2019-03-15] MEDS ORDERED: FLU VACC QUAD 2019-20 (3 YR UP)/PF 60 MCG/0.5 ML SYRINGE IM ONE (12:00)
[2019-03-16] MEDS: IBUPROFEN 600 MG TAB PO SCH ×2 (00:10→05:41)
[2019-03-16 09:03] VITALS: BP 100/60
[2019-03-16] MEDS: DOCUSATE SODIUM 100 MG CAP PO SCH (10:02)
== END 2019-03-16 10:30 | disposition home or self-care (01) | DRG 774 ==
LOC: TRG 09:42 → LD 12:31 → OB 18:27
PROVIDERS: ADMIT Obstetrics & Gynecology; ATTEND Obstetrics & Gynecology
PROC: 10E0XZZ Delivery of Products of Conception, External Approach (ICD-10-PCS; principal; 2019-03-14)
PROC: 0HQ9XZZ Repair Perineum Skin, External Approach (ICD-10-PCS; 2019-03-14)
DX: O98.52 Other viral diseases complicating childbirth (principal); B00.9 Herpesviral infection, unspecified; O70.0 First degree perineal laceration during delivery; O69.3XX0 Labor and delivery complicated by short cord, not applicable or unspecified; Z3A.39 39 weeks gestation of pregnancy; Z37.0 Single live birth; Z90.49 Acquired absence of other specified parts of digestive tract; Z83.3 Family history of diabetes mellitus
CPT/HCPCS: 36415; 81001; 85014; 85018; 85025; 86592; 86850; 86900; 86901; 87086; 90471; 90686; 90715; G0378; J0696; J2590; J7120